=== PATIENT | male | born 1995 | race African-American/Black ===

== ENCOUNTER 2016-10-23 14:00 | Inpatient (IN) | payer MEDICARE, OTHER ==
--- NOTE | ~2016-10-23 | HP ---
Unit #: [id number] #: [id number] Patient: JIMBO HERMOSILLO [id number] [facility] [address] [place] [address] [id number] I MR#: [id number] NAME: JIMBO HERMOSILLO. ROOM: [facility] Age: 21 Sex: M Admission Date: 10/23/2016 : 1995 Attending Physician: Sajan Simms M.D. Admitting Physician: Sajan Simms M.D. Primary Care Physician: Generic Doctor Not In System HISTORY AND PHYSICAL HISTORY OF PRESENT ILLNESS The patient is a 21-year-old male, who has been admitted to [facility] for homicidal and suicidal ideations. He has had numerous admissions to this facility for the same. PAST MEDICAL HISTORY 1. Diabetes. 2. Drug abuse. 3. History of self-harming. PAST SURGICAL HISTORY Oral surgery. ALLERGIES No known allergies. HOME MEDICATIONS Fluphenazine 10 mg p.o. at night FAMILY HISTORY Medically noncontributory. SOCIAL HISTORY The patient denies alcohol and endorses tobaccoism, marijuana and opiate abuse. REVIEW OF SYSTEMS CONSTITUTIONAL: Denies fever or chills. HEENT: Denies any sore throat, ear pain or runny nose. CARDIOVASCULAR: Denies chest pain, irregular heart rhythm or palpitations. CHEST: Denies shortness of breath or cough. No hemoptysis. GASTROINTESTINAL: Denies nausea, vomiting, diarrhea or chronic constipation. ENDOCRINE: Denies history of increased thirst or urination. No recent significant weight loss or gain. GENITOURINARY: Denies dysuria, frequency, or hematuria. SKIN: Denies any rashes. HEMATOLOGIC: Denies history of increased bleeding or bruising. MUSCULOSKELETAL: Denies any hot, swollen joints. No generalized muscle pain. NEUROLOGIC: Denies problems with vision or speech. No frequent, severe headaches. No numbness, tingling or weakness in any extremities. Denies loss of bladder or bowel control. Unit #: [id number] #: [id number] Patient: JIMBO HERMOSILLO PHYSICAL EXAMINATION GENERAL: The patient is awake, alert, and in no acute distress. VITAL SIGNS: His vital signs are, temperature 98.7. respirations 20, heart rate 82, and blood pressure 119/54. WEIGHT: 166 pounds. HEIGHT: 6 feet 3 inches. SKIN: Warm and dry without rash or lesion. HEENT: Head: Atraumatic and normocephalic. Pupils equal, round, and reactive. Extraocular movements are intact. No drainage from nares or ears. NECK: Supple. Trachea is midline. No lymphadenopathy or thyromegaly is appreciated. HEART: Regular rate and rhythm. LUNGS: Clear. ABDOMEN: Soft, nontender. Nondistended. : Not done. SKIN: Appears to be warm, dry, and intact. EXTREMITIES: No evidence of clubbing, edema, or cyanosis. Moves all extremities well. NEUROLOGICAL: Cranial Nerves: II-XII intact. No focal deficits. Coordination: Gait is normal. Deep Tendon Reflexes: Intact. IMPRESSION Psychiatric admission. RECOMMENDATIONS Psychiatric, will be per psychiatry. MEDICAL I see no contraindications to participating in facility's activities. MEDICAL PROGNOSIS Fair. MEDICAL CONDITION Stable. Dictated by... Jayda Joel A.P.R.N. for Ruddy Salamanca TD: 10/24/2016 13:09 JOB #: [id number] Unit #: [id number] #: [id number] Patient: JIMBO HERMOSILLO HISTORY AND PHYSICAL Page 1 of 1 X Jayda Joel APRN X HISTORY AND PHYSICAL
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
== END 2016-10-27 10:51 | DRG 880 ==
LOC: P2S 16:47 → P1S 16:47 → P2S 17:24
DX: F68.11 Factitious disorder imposed on self, with predominantly psychological signs and symptoms (principal); F60.2 Antisocial personality disorder; J45.909 Unspecified asthma, uncomplicated; G47.00 Insomnia, unspecified
CPT/HCPCS: J0515

== ENCOUNTER 2016-10-29 10:11 | Inpatient (IN) | payer MEDICARE, OTHER ==
--- NOTE | ~2016-10-29 | PN ---
Unit #: [id number] #: [id number] Patient: JIMBO HERMOSILLO [id number] [facility] [address] [place] [address] [id number] I MR#: [id number] NAME: JIMBO HERMOSILLO ROOM: P131 Age: 21 Sex: M Admission Date: 10/29/2016 : 1995 Attending Physician: Sajan Simms M.D. Admitting Physician: Sajan Simms M.D. Primary Care Physician: Generic Doctor Not In System [facility] PROGRESS NOTES DATE 11/04/2016 DISCUSSION Jimbo continues unchanged today. He is becoming involved in some negative behaviors with peers, and appears to be quite provocative when he is not observed by staff. These are typical antisocial behaviors that he had demonstrated on multiple previous occasions. He is alert and fully oriented with no evidence of psychosis. He is equivocal about suicidal ideation today. ASSESSMENT 1. Intermittent explosive disorder. 2. Factitious disorder. PLAN Continue current treatment plan. Dictated by... Sajan Simms M.D. [facility]/antoine TD: 11/11/2016 21:26 JOB #: [id number] [facility] PROGRESS NOTES Page 1 of 1 X Sajan Simms MD PROGRESS NOTE
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
--- NOTE | ~2016-10-29 | PN ---
Unit #: [id number] #: [id number] Patient: JIMBO HERMOSILLO [id number] [facility] [address] [place] [address] [id number] MR#: [id number] NAME: JIMBO HERMOSILLO ROOM: P131 Age: 21 Sex: M Admission Date: 10/29/2016 : 1995 Attending Physician: Sajan Simms M.D. Admitting Physician: Sajan Simms M.D. Primary Care Physician: Generic Doctor Not In System [facility] PROGRESS NOTES DATE 11/03/2016 DISCUSSION Jimbo continues to be unchanged today. He occasionally has lability and some inappropriateness with staff but is "innocent" and pleasant upon approach with me. He appears to be trying to negotiate a discharge date that comports with his psychosocial circumstances, and I once again explained to him that we are not a housing agency and that his discharge will be completed when medically appropriate. He is alert and fully oriented with no evidence of psychosis. He is continuing to assert suicidal ideation. ASSESSMENT Intermittent explosive disorder. PLAN Continue current treatment plan. Dictated by... Sajan Simms M.D. /antoine TD: 11/11/2016 22:01 JOB #: [id number] [facility] PROGRESS NOTES Page 1 of 1 X Sajan Simms MD PROGRESS NOTE
--- NOTE | ~2016-10-29 | HP ---
Unit #: [id number] #: [id number] Patient: JIMBO HERMOSILLO [id number] [facility] [address] [place] [address] [id number] MR#: [id number] NAME: JIMBO HERMOSILLO. ROOM: P131 Age: 21 Sex: M Admission Date: 10/29/2016 : 1995 Attending Physician: Sajan Simms M.D. Admitting Physician: Sajan Simms M.D. Primary Care Physician: Generic Doctor Not In System HISTORY AND PHYSICAL HISTORY OF PRESENT ILLNESS Jimbo is a 21 year old admitted to [address] [place] [address] after an overdose of Depakote. He was transported to the emergency room, charcoaled, and when medically stable, transported to [facility] for psychiatric care. He has had numerous admissions to this facility. The patient was seen and H and P dated 10/24/2016 was reviewed. This is current. No changes. Please see H and P dated 10/24/2016. Dictated by... Karina Fulton PKashifABrionna. for Ruddy Salamanca/romulo TD: 10/31/2016 07:41 JOB #: [id number] HISTORY AND PHYSICAL Page 1 of 1 X Karina Fulton HISTORY AND PHYSICAL
--- NOTE | ~2016-10-29 | PN ---
Unit #: [id number] #: [id number] Patient: JIMBO HERMOSILLO [id number] [facility] [address] [place] [address] [id number] I MR#: [id number] NAME: JIMBO HERMOSILLO ROOM: P131 Age: 21 Sex: M Admission Date: 10/29/2016 : 1995 Attending Physician: Sajan Simms M.D. Admitting Physician: Sajan Simms M.D. Primary Care Physician: Generic Doctor Not In System [facility] PROGRESS NOTES DATE 11/02/2016 DISCUSSION Jimbo continues to be generally compliant with treatment planning and shows no changes in his mood today. He is alert and fully oriented with no evidence of psychosis. He continues to report suicidal ideation. ASSESSMENT Intermittent explosive disorder. PLAN Continue current treatment plan. Dictated by... Ruddy Rosas/antoine TD: 11/11/2016 22:19 JOB #: [id number] [facility] PROGRESS NOTES Page 1 of 1 X Sajan Simms MD X PROGRESS NOTE
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
[2016-10-30 09:55] LABS: BASOPHIL% 0.3 % (0-2.5); EOSINOPHIL# 0.2 X10e3 (0-0.7); EOSINOPHIL% 3.3 % (0.0-7.0); HEMATOCRIT 38.4 % (38.0-50.0); HEMOGLOBIN 12.4 gm/dL (13.0-16.0); LYMPHOCYTE# 1.8 X10e3 (1.0-3.5); LYMPHOCYTE% 30.5 % (17.0-45.0); MEAN CELL VOLUME 84.3 FL (83-96); MEAN CORPUSCULAR HEMOGLOBIN 27.2 PG (28-34); MEAN CORPUSCULAR HGB CONC 32.3 g/dL (30-36); MEAN PLATELET VOLUME 8.6 FL (6.5-11.5); MONOCYTE# 0.6 X10e3 (0-1.0); MONOCYTE% 9.8 % (3.0-12.0); NEUTROPHIL# 3.3 X10e3 (1.5-7.1); NEUTROPHIL% 56.1 % (40-75); PLATELET COUNT 223 X10e3 (140-420); RED BLOOD COUNT 4.56 X10e (3.90-5.60); RED CELL DISTRIBUTION WIDTH 13.8 % (11.0-15.5); WHITE BLOOD COUNT 5.9 X10e3 (4.0-10.5)
[2016-10-30 10:08] LABS: DIFF IND NO
[2016-10-30 10:11] LABS: THYROID STIMULATING HORMONE 1.06 uIU/ml (0.34-5.60)
[2016-10-30 10:18] LABS: FREE THYROXIN (T4) 0.79 ng/dL (0.58-1.64)
[2016-10-30 10:24] LABS: ALBUMIN SERUM 3.9 g/dL (3.5-5.0); BILIRUBIN,TOTAL 0.8 mg/dL (0.2-2.0); CALCIUM SERUM 9.7 mg/dL (8.4-10.2); POTASSIUM 4.5 mmol/L (3.5-5.1); PROTEIN TOTAL SERUM 6.6 g/dL (6.0-8.3)
== END 2016-11-05 12:00 | disposition home or self-care (01) | DRG 883 ==
LOC: P1S 17:23
PROVIDERS: Psychiatry & Neurology Psychiatry
DX: F63.81 Intermittent explosive disorder (principal); F68.11 Factitious disorder imposed on self, with predominantly psychological signs and symptoms; F60.2 Antisocial personality disorder; J45.909 Unspecified asthma, uncomplicated
CPT/HCPCS: 80053; 80164; 82140; 84439; 84443; 85025

== ENCOUNTER 2016-12-03 18:21 | Inpatient (IN) | payer MEDICARE, OTHER ==
--- NOTE | ~2016-12-03 | HP ---
Unit #: [id number] #: [id number] Patient: JIMBO HERMOSILLO [id number] [facility] [address] [place] [address] [id number] I MR#: [id number] NAME: JIMBO HERMOSILLO ROOM: [facility] Age: 21 Sex: M Admission Date: 12/03/2016 : 1995 Attending Physician: Sajan Simms M.D. Admitting Physician: Sajan Simms M.D. Primary Care Physician: Generic Doctor Not In System HISTORY AND PHYSICAL Jimbo is a 21 year old who was admitted and discharged within the first 24 hours. He was not seen for an H and P. Dictated by... Karina Fulton P.A.-C. for Ruddy Salamanca/antoine TD: 12/04/2016 16:21 JOB #: [id number] HISTORY AND PHYSICAL Page 1 of 1 X Karina Fulton X HISTORY AND PHYSICAL
== END 2016-12-04 11:24 | disposition home or self-care (01) | DRG 882 ==
LOC: P1S 18:21 → EDBD 12-04 11:24 → P1S 12-04 11:24
DX: F43.20 Adjustment disorder, unspecified (principal); F60.2 Antisocial personality disorder

== ENCOUNTER 2016-12-07 15:00 | Inpatient (IN) | payer MEDICARE, OTHER ==
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
--- NOTE | ~2016-12-07 | HP ---
Unit #: [id number] #: [id number] Patient: JIMBO HERMOSILLO [id number] [place] [address] [id number] MR#: [id number] NAME: JIMBO HERMOSILLO. ROOM: [facility] Age: 21 Sex: M Admission Date: 12/07/2016 : 1995 Attending Physician: Sajna Simms M.D. Admitting Physician: Sajan Simms M.D. Primary Care Physician: Generic Doctor Not In System HISTORY AND PHYSICAL HISTORY OF PRESENT ILLNESS Jimbo is a 21 year old admitted to [address] [place] [address] with depression and verbalizing wanting to hurt himself. He is well known to staff at [facility] because of his numerous admissions. PAST MEDICAL HISTORY 1. Diabetes mellitus 2. History of illicit drug use 3. History of self-harming PAST SURGICAL HISTORY Oral ALLERGIES No known drug allergies. SOCIAL HISTORY HISTORY OF PRESENT ILLNESS is a 43 year old admitted to [facility] with depression PAST MEDICAL HISTORY PAST SURGICAL HISTORY ALLERGIES No known drug allergies. SOCIAL HISTORY She denies cigarettes, alcohol and illicit drug use. FAMILY HISTORY Medically noncontributory. REVIEW OF SYSTEMS CONSTITUTIONAL: No fever or chills. HEENT: Denies any sore throat, ear pain or runny nose. CARDIOVASCULAR: Denies chest pain, irregular heart rhythm or palpitations. CHEST: Denies shortness of breath or cough. No hemoptysis. GASTROINTESTINAL: Denies nausea, vomiting, diarrhea or chronic constipation. ENDOCRINE: Denies history of increased thirst or urination. No recent Unit #: [id number] #: [id number] Patient: JIMBO HERMOSILLO significant weight loss or gain. GENITOURINARY: Denies dysuria, frequency, or hematuria. SKIN: Denies any rashes. HEMATOLOGIC: Denies history of increased bleeding or bruising. MUSCULOSKELETAL: Denies any hot, swollen joints. No generalized muscle pain. NEUROLOGIC: Denies problems with vision or speech. No frequent, severe headaches. No numbness, tingling or weakness in any extremities. Denies loss of bladder or bowel control. CURRENT MEDICATIONS PHYSICAL EXAMINATION GENERAL: Alert, well-nourished, in no apparent distress. VITAL SIGNS: Blood pressure 124/72, heart rate 60, respirations 16, temperature 98.6. WEIGHT: 182 pounds. HEIGHT: 5'6". SKIN: Warm and dry without rash or lesion. HEENT: Normocephalic. TMs not viewed. Oral and nasal passages clear. Conjunctivae clear. Pupils equal, round and reactive to light and accommodation. Extraocular movements intact. NECK: Supple without lymphadenopathy or thyromegaly. HEART: Regular rate and rhythm without murmur. LUNGS: Clear. ABDOMEN: Soft, nontender. : Not done. EXTREMITIES: No evidence of cyanosis, clubbing or edema. Moves all extremities without focal deficit. NEUROLOGICAL: Grossly within normal limits. Cranial Nerves: II: Visual coleman are intact. III, IV AND : Extraocular movements are intact. Pupils are equal, round and reactive to light. V: Facial sensation is grossly normal. VII: Facial movements and expression are normal. VIII: Auditory acuity grossly intact. IX, X: Uvula is midline. Phonation is normal. XI: Patient shrugs shoulders and turns head normally. XII: Tongue protrudes in the midline. Sensory and Motor Function: Sensory and motor sensation is grossly normal. Motor: moves all extremities well. Coordination: Gait is normal. Deep Tendon Reflexes: Intact. IMPRESSION Psychiatric admission RECOMMENDATIONS PSYCHIATRIC: Per psychiatrist. MEDICAL: I see no contraindications to participating in facility's activities. MEDICAL PROGNOSIS Good. MEDICAL CONDITION Stable. Smokes on occasion. Denies alcohol. Admits to illicit drug use. FAMILY HISTORY Unit #: [id number] #: [id number] Patient: JIMBO HERMOSILLO Medically noncontributory. REVIEW OF SYSTEMS He refuses to answer questions. There are no reports of nausea, vomiting or diarrhea. He has had no cough or increased temperature. CURRENT MEDICATIONS No orders received at the time of this dictation. PHYSICAL EXAMINATION GENERAL: Alert, well-nourished, in no apparent distress. VITAL SIGNS: Blood pressure 100/58, heart rate 80, respirations 16, temperature 98.6. WEIGHT: 180 pounds. HEIGHT: 6'3". SKIN: Warm and dry without rash or lesion. HEENT: Normocephalic. TMs not viewed. Oral and nasal passages clear. Conjunctivae clear. Pupils equal, round and reactive to light and accommodation. Extraocular movements intact. NECK: Supple without lymphadenopathy or thyromegaly. HEART: Regular rate and rhythm without murmur. LUNGS: Clear. ABDOMEN: Soft, nontender. : Not done. EXTREMITIES: No evidence of cyanosis, clubbing or edema. Moves all extremities without focal deficit. NEUROLOGICAL: Grossly within normal limits. Cranial Nerves: II: Visual coleman are intact. III, IV AND : Extraocular movements are intact. Pupils are equal, round and reactive to light. V: Facial sensation is grossly normal. VII: Facial movements and expression are normal. VIII: Auditory acuity grossly intact. IX, X: Uvula is midline. Phonation is normal. XI: Patient shrugs shoulders and turns head normally. XII: Tongue protrudes in the midline. Sensory and Motor Function: Sensory and motor sensation is grossly normal. Motor: moves all extremities well. Coordination: Gait is normal. Deep Tendon Reflexes: Intact. IMPRESSION Psychiatric admission. RECOMMENDATIONS PSYCHIATRIC: Per psychiatrist. MEDICAL: I see no contraindications to participating in facility's activities. MEDICAL PROGNOSIS Good. MEDICAL CONDITION Stable. Dictated by... Unit #: [id number] #: [id number] Patient: HERMOSILLOJIMBO, P.AKashif-Cathie. for Ruddy Salamanca/eleazar TD: 12/09/2016 00:51 JOB #: [id number] HISTORY AND PHYSICAL Page 1 of 1 X Karina Fulton X HISTORY AND PHYSICAL
[2016-12-08 12:24] LABS: BASOPHIL% 0.6 % (0-2.5); EOSINOPHIL# 0.1 X10e3 (0-0.7); HEMATOCRIT 41.4 % (38.0-50.0); HEMOGLOBIN 13.3 gm/dL (13.0-16.0); LYMPHOCYTE# 2.2 X10e3 (1.0-3.5); LYMPHOCYTE% 40.6 % (17.0-45.0); MEAN CELL VOLUME 85.1 FL (83-96); MEAN CORPUSCULAR HEMOGLOBIN 27.4 PG (28-34); MEAN CORPUSCULAR HGB CONC 32.2 g/dL (30-36); MEAN PLATELET VOLUME 8.8 FL (6.5-11.5); MONOCYTE# 0.3 X10e3 (0-1.0); MONOCYTE% 6.2 % (3.0-12.0); NEUTROPHIL# 2.8 X10e3 (1.5-7.1); NEUTROPHIL% 50.6 % (40-75); PLATELET COUNT 232 X10e3 (140-420); RED BLOOD COUNT 4.86 X10e (3.90-5.60); RED CELL DISTRIBUTION WIDTH 14.4 % (11.0-15.5); WHITE BLOOD COUNT 5.5 X10e3 (4.0-10.5)
[2016-12-08 12:25] LABS: DIFF IND NO
[2016-12-08 12:35] LABS: ALBUMIN SERUM 4.5 g/dL (3.5-5.0); BILIRUBIN,TOTAL 0.8 mg/dL (0.2-2.0); BUN/CREATININE RATIO 21.25; CALCIUM SERUM 9.9 mg/dL (8.4-10.2); CREATININE SERUM 0.8 mg/dL (0.6-1.4); GLOM FILT RATE Estimated 128.6 mL/min (>60); POTASSIUM 4.4 mmol/L (3.5-5.1); PROTEIN TOTAL SERUM 7.6 g/dL (6.0-8.3)
== END 2016-12-08 13:59 | disposition left against medical advice (07) | DRG 880 ==
LOC: POF 16:36 → P1S 17:20 → EDBD 12-08 13:59
PROVIDERS: Psychiatry & Neurology Psychiatry
DX: F68.11 Factitious disorder imposed on self, with predominantly psychological signs and symptoms (principal); F60.2 Antisocial personality disorder; F12.10 Cannabis abuse, uncomplicated
CPT/HCPCS: 80053; 85025

== ENCOUNTER 2016-12-09 09:28 | Inpatient (IN) | payer MEDICARE, OTHER ==
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
[2016-12-12 10:09] LABS: AMPHETAMINE NEG (NEG); BARBITURATES NEG (NEG); BENZODIAZEPINES NEG (NEG); COCAINE NEG (NEG); MARIJUANA NEG (NEG); OPIATES NEG (NEG); TRICYCLIC ANTIDEPRESSANTS NEG (NEG); U METHADONE NEG (NEG)
== END 2016-12-13 15:20 | disposition home or self-care (01) | DRG 880 ==
LOC: P2S 11:13 → EDBD 12-13 15:20
PROVIDERS: Psychiatry & Neurology Psychiatry
DX: F68.11 Factitious disorder imposed on self, with predominantly psychological signs and symptoms (principal); F60.2 Antisocial personality disorder; F19.10 Other psychoactive substance abuse, uncomplicated; Z59.0 Homelessness
CPT/HCPCS: 80307

== ENCOUNTER 2017-01-02 12:00 | Inpatient (IN) | payer MEDICARE, OTHER ==
--- NOTE | ~2017-01-02 | HP ---
Unit #: [id number] #: [id number] Patient: JIMBO HERMOSILLO [id number] [facility] [address] [place] [address] [id number] MR#: [id number] NAME: JIMBO HERMOSILLO. ROOM: 15 Age: 21 Sex: M Admission Date: 01/02/2017 : 1995 Attending Physician: Sajan Simms M.D. Admitting Physician: Sajan Simms M.D. Primary Care Physician: No Primary Care Physician HISTORY AND PHYSICAL REASON FOR ADMISSION Acute psychiatric inpatient admission. HISTORY OF PRESENT ILLNESS The patient has positive homicidal ideation and/or mental illness. Subsequently the patient presented for further evaluation. Increased anxiety. Prior history of suicidal ideation was noted. PAST MEDICAL HISTORY 1. Tobacco, substance abuse. 2. Underlying mental illness. HOME MEDICATIONS 1. Adderall. 2. Depakote. REVIEW OF SYSTEMS See history of present illness. Twelve points otherwise negative except for those positive noted in history of present illness. PHYSICAL EXAMINATION VITALS: Temperature 98.4, pulse 64, respiratory rate 18, blood pressure 103/61. GENERAL: Awake, alert, oriented to person, place, and time. Well built, well nourished. Does not appear to be in any acute distress. HEAD: Atraumatic. Normocephalic. EYES: Bilateral extraocular muscles are normal. Pupils equal, reactive to light and accommodation. Sclerae are normal. No jaundice. NECK: Neck is supple. No neck rigidity. No thyromegaly. No carotid bruit. No JVD. Oral mucosa is moist. CHEST: Bilateral vesicular breathing. Clear to auscultation. No basilar rales. CARDIOVASCULAR: S1 and S2 normal. No murmur, no gallop, no rub. ABDOMEN: Soft, nontender. No organomegaly. Bowel sounds are normal. No hernia, no masses, no rebound, no guarding. EXTREMITIES: No pitting edema. No calf tenderness. Extremity pulses, including dorsalis pedis, have good volume. BACK: Normal spine curvature. No spine tenderness. No costovertebral angle tenderness. WINDOWS ARCHITECT: Cranial nerves normal bilaterally. Motor function bilaterally symmetric and normal. Sensory system normal. SKIN: Warm and dry. ASSESSMENT Unit #: [id number] #: [id number] Patient: JIMBO HERMOSILLO 1. Acute psychiatric inpatient admission. 2. Suicidal/homicidal ideation. PLAN As per psychiatrist. Medical condition stable. Medical disposition, there are no medical contraindications to the patient participating in active care while here at [facility]. Dictated by... Todd Gtz M.D. ROB/gz TD: 01/03/2017 09:16 JOB #: [id number] HISTORY AND PHYSICAL Page 1 of 1 X Todd Gtz MD X HISTORY AND PHYSICAL
--- NOTE | ~2017-01-02 | PN ---
Unit #: [id number] #: [id number] Patient: JIMBO HERMOSILLO [id number] [facility] [address] [place] [address] [id number] MR#: [id number] NAME: JIMBO HERMOSILLO ROOM: P115 Age: 21 Sex: M Admission Date: 01/02/2017 : 1995 Attending Physician: Sajan Simms M.D. Admitting Physician: Sajan Simms M.D. Primary Care Physician: Primary Care Physician Vika SHAW PROGRESS NOTES DATE OF SERVICE 01/05/2017 DISCUSSION Jimbo is sleeping heavily this morning and is difficult to wait for an interview. His mood was irritable with a congruent affect. He was alert and fully oriented with no evidence of psychosis. He continues to report suicidal thinking. ASSESSMENT Factitious order with psychologic symptoms. PLAN Continue current treatment plan. Dictated by... Sajan Simms M.D. [facility]/bzg TD: 01/06/2017 10:04 JOB #: [id number] [facility] PROGRESS NOTES Page 1 of 1 X Sajan Simms MD PROGRESS NOTE
--- NOTE | ~2017-01-02 | PN ---
Unit #: [id number] #: [id number] Patient: JIMBO HERMOSILLO [id number] [facility] [address] [place] [address] [id number] MR#: [id number] NAME: JIMBO HERMOSILLO. ROOM: P115 Age: 21 Sex: M Admission Date: 01/02/2017 : 1995 Attending Physician: Sajan Simms M.D. Admitting Physician: Sajan Simsm M.D. Primary Care Physician: Primary Care Physician Vika SHAW PROGRESS NOTES DATE 01/06/2017 DISCUSSION Jimbo continues to be irritable in his mood and claims that his brother "has it out for me" although he feels he can go home tomorrow. He originally asked for discharge against medical advice this morning but that appeared to have been based on an arrangement with a peer which fell through. He is alert and fully oriented with absolutely no evidence of psychosis. ASSESSMENT Factitious disorder with psychological symptoms. PLAN We will continue Remeron for sleep and anticipate discharge soon. Dictated by... Ruddy Rosas/eleazar TD: 01/07/2017 01:01 JOB #: [id number] [facility] PROGRESS NOTES Page 1 of 1 X Sajan iSmms MD PROGRESS NOTE
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
--- NOTE | ~2017-01-02 | PN ---
Unit #: [id number] #: [id number] Patient: JIMBO HERMOSILLO [id number] [facility] [address] [place] [address] [id number] I MR#: [id number] NAME: JIMBO HERMOSILLO. ROOM: P115 Age: 21 Sex: M Admission Date: 01/02/2017 : 1995 Attending Physician: Sajan Simms M.D. Admitting Physician: Sajan Simms M.D. Primary Care Physician: Primary Care Physician Vika SHAW PROGRESS NOTES DATE 01/04/2017 DISCUSSION This morning Jimbo states that he is supposed to be on "Adderall and Xanax" but I informed him these substances would not be forthcoming in the hospital. He then requested Remeron, which I presume is for sleep as he has no depressive or anxiety symptoms except as those related to his chronically chaotic outpatient situation. He has been making sexual remarks toward female staff and is showing his usual tendency to be "sneaky" and attempting to get away with interactions with patient's unobserved by staff. ASSESSMENT Factitious disorder with psychological symptoms. PLAN Add Remeron 30 mg at bedtime to assist with sleep and monitor for response. Dictated by... Ruddy Rosas/eleazar TD: 01/05/2017 23:10 JOB #: [id number] [facility] NOTES Page 1 of 1 X Sajan Simms MD X PROGRESS NOTE
== END 2017-01-07 11:00 | disposition home or self-care (01) | DRG 880 ==
LOC: P1S 15:45 → EDBD 01-07 11:00
DX: F68.11 Factitious disorder imposed on self, with predominantly psychological signs and symptoms (principal); R45.851 Suicidal ideations; R45.850 Homicidal ideations; F12.10 Cannabis abuse, uncomplicated

== ENCOUNTER 2017-01-07 15:00 | Inpatient (IN) | payer MEDICARE, OTHER ==
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
--- NOTE | ~2017-01-07 | HP ---
Unit #: [id number] #: [id number] Patient: JIMBO HERMOSILLO [id number] [facility] [address] [place] [address] [id number] I MR#: [id number] NAME: JIMBO HERMOSILLO ROOM: P130 Age: 21 Sex: M Admission Date: 01/07/2017 : 1995 Attending Physician: Sajan Simms M.D. Admitting Physician: Sajan Simms M.D. Primary Care Physician: Primary Care Physician No HISTORY AND PHYSICAL Jimbo is a 21 year old admitted to [address] [place] [address] because of his continued reports of being depressed and allegedly contemplating hurting himself. He was just discharged from this facility and in less than 4 hours, he was readmitted. Patient was seen and h and P dated 01/03/17 was reviewed. This is current. No changes. Please see H and P dated 01/03/17. Dictated by... Karina Fulton P.A.-C. for Ruddy Salamanca/antoine TD: 01/08/2017 15:43 JOB #: [id number] HISTORY AND PHYSICAL Page 1 of X Karina Fulton HISTORY AND PHYSICAL
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
== END 2017-01-09 10:57 | disposition home or self-care (01) | DRG 880 ==
LOC: P1S 20:45 → EDBD 01-09 10:57 → P1S 01-09 10:57
DX: F68.11 Factitious disorder imposed on self, with predominantly psychological signs and symptoms (principal); F60.2 Antisocial personality disorder
CPT/HCPCS: 99285; J3486

== ENCOUNTER 2017-01-14 02:04 | Emergency (ER) | payer MEDICARE, OTHER ==
[~2017-01-14] VITALS: Ht 193 cm; Wt 81.6 kg
--- NOTE | ~2017-01-14 | EKG ---
PATIENT: JIMBO HERMOSILLO UNIT #: [id number] Ventricular Rate: 85 BPM Atrial Rate: 85 BPM P-R Interval: 192 ms QRS Duration: 78 ms Q-T Interval: 342 ms QTC Calculation(Bezet): 406 ms P [place]: 63 degrees Calculated R [place]: 75 degrees Calculated T [place]: 45 degrees Diagnosis Line: Normal sinus rhythm Diagnosis Line: Minimal voltage criteria for LVH, may be normal Diagnosis Line: variant Diagnosis Line: Borderline ECG Diagnosis Line: When compared with ECG of 02-OCT-2011 13:57, Diagnosis Line: No significant change was found Diagnosis Line: Confirmed by ISIDRA REID MD ([id number]) on 01/14/2017 Diagnosis Line: 11:06:25 PM INTERPRETING MD: FRANKLIN MERCADO
[2017-01-14 03:35] LABS: BASOPHIL% 0.2 % (0-2.5); EOSINOPHIL# 0.1 X10e3 (0-0.7); EOSINOPHIL% 1.3 % (0.0-7.0); HEMATOCRIT 39.3 % (38.0-50.0); HEMOGLOBIN 12.7 gm/dL (13.0-16.0); LYMPHOCYTE# 2.2 X10e3 (1.0-3.5); LYMPHOCYTE% 26.9 % (17.0-45.0); MEAN CELL VOLUME 84.9 FL (83-96); MEAN CORPUSCULAR HEMOGLOBIN 27.5 PG (28-34); MEAN CORPUSCULAR HGB CONC 32.3 g/dL (30-36); MEAN PLATELET VOLUME 8.6 FL (6.5-11.5); MONOCYTE# 0.7 X10e3 (0-1.0); MONOCYTE% 7.8 % (3.0-12.0); NEUTROPHIL# 5.3 X10e3 (1.5-7.1); NEUTROPHIL% 63.8 % (40-75); PLATELET COUNT 262 X10e3 (140-420); RED BLOOD COUNT 4.63 X10e (3.90-5.60); RED CELL DISTRIBUTION WIDTH 14.1 % (11.0-15.5); WHITE BLOOD COUNT 8.4 X10e3 (4.0-10.5)
[2017-01-14 03:38] LABS: DIFF IND NO
[2017-01-14 04:07] LABS: ALBUMIN SERUM 4.5 g/dL (3.5-5.0); BILIRUBIN, DIRECT 0.1 mg/dL (0.0-0.2); BILIRUBIN,INDIRECT 0.8 mg/dL (0.0-0.9); BILIRUBIN,TOTAL 0.9 mg/dL (0.2-2.0); CALCIUM SERUM 9.7 mg/dL (8.4-10.2); CREATININE SERUM 0.8 mg/dL (0.6-1.4); GLOM FILT RATE Estimated 149.1 mL/min (>60); POTASSIUM 3.2 mmol/L (3.5-5.1); PROTEIN TOTAL SERUM 7.6 g/dL (6.0-8.3)
== END 2017-01-14 03:54 | disposition home or self-care (01) ==
LOC: CED 02:04 → EDBD 02:56 → CED 03:54
PROVIDERS: Emergency Medicine
DX: M79.1 Myalgia (principal); F31.9 Bipolar disorder, unspecified; F90.9 Attention-deficit hyperactivity disorder, unspecified type; F20.9 Schizophrenia, unspecified; F17.210 Nicotine dependence, cigarettes, uncomplicated; Z88.0 Allergy status to penicillin; Z88.8 Allergy status to other drugs, medicaments and biological substances
CPT/HCPCS: 36415; 80048; 80076; 82550; 85025; 93005; 96361; 96374; 99284; J2405

== ENCOUNTER 2017-01-15 | Inpatient (IN) | payer MEDICARE, OTHER ==
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
--- NOTE | ~2017-01-15 | PN ---
Unit #: [id number] #: [id number] Patient: JIMBO HERMOSILLO [id number] [facility] [address] [place] [address] [id number] I MR#: [id number] NAME: JIMBO HERMOSILLO ROOM: P116 Age: 21 Sex: M Admission Date: 01/15/2017 : 1995 Attending Physician: Sajan Simms M.D. Admitting Physician: Sajan Simms M.D. Primary Care Physician: Primary Care Physician Vika SHAW PROGRESS NOTES DATE OF SERVICE: 01/17/2017 DISCUSSION Jimbo is laying in his room this morning avoiding contact with peers and staff. He is irritable in mood with a congruent affect. He is alert and fully oriented with no evidence of psychosis, and is unable to contract for safety. ASSESSMENT Factitious disorder. PLAN Continue hospitalization. Dictated by... Ruddy RosasH/hany TD: 01/21/2017 11:04 JOB #: [id number] [facility] PROGRESS NOTES Page 1 of 1 X Sajan Simms MD PROGRESS NOTE
--- NOTE | ~2017-01-15 | PA ---
Unit #: [id number] #: [id number] Patient: JIMBO HERMOSILLO [id number] [facility] [address] [place] [address] [id number] I MR#: [id number] NAME: JIMBO HERMOSILLO. ROOM: [facility] Age: 21 Sex: M Admission Date: 01/15/2017 : 1995 Date of Assessment: 01/15/2017 Attending Physician: Sajan Simms M.D. Admitting Physician: Sajan Simms M.D. Primary Care Physician: Primary Care Physician No PSYCHIATRIC ASSESSMENT DATE OF SERVICE 01/15/2017. INFORMANTS The patient, unreliable; [facility], reliable. CHIEF COMPLAINT Suicidal ideation. HISTORY OF PRESENT ILLNESS Jimbo Hermosillo is a 21-year-old man with multiple admissions to this facility for antisocial behavior and some mild drug related issues. He reported suicidal ideation and could not contract for safety today. He was readmitted for stabilization. PAST PSYCHIATRIC HISTORY Multiple admissions. Please see previous assessments for details. FAMILY PSYCHIATRIC HISTORY None reported. SOCIAL HISTORY The patient is homeless in the community and has family in the area, although they generally refused to provide him with [facility] at this point. PAST MEDICAL HISTORY The patient has claimed diabetes, asthma, and other conditions in the past that has been unconfirmed. MEDICATIONS Please see MAR. ALLERGIES No known medication allergies except for Haldol. SUBSTANCE USE HISTORY The patient claims to use "spice" on occasion. MENTAL STATUS EXAMINATION Jimbo presented as a disheveled man, appearing older than his stated age. He was irritable and uncooperative with the examination. His speech was spontaneous and easily understood. His musculoskeletal examination was calm. His mood was irritable with decreased range of affect. He was Unit #: [id number] #: [id number] Patient: JIMBO HERMOSILLO alert and fully oriented with no psychosis. He continues to report suicidal ideation. ASSETS AND LIABILITIES The patient is youthful and voluntary. Liabilities include chronic hospitalization, poor support, antisocial traits. ADMITTING DIAGNOSES AXIS I: Factitious disorder with psychological symptoms, F68.11, possible spice abuse. AXIS II: Antisocial personality disorder. AXIS III: None acute. AXIS IV: AXIS V: PSYCHIATRIC PLAN Jimbo was admitted and placed back on Remeron for sleep and trazodone p.r.n. for insomnia. He will enroll in psychotherapy groups and activities and physical examination and laboratory studies will be ordered and reviewed. TREATMENT GOALS Resolution of SI, improvement in insight, and improvement in coping skills. DISCHARGE PLANNING Follow up with [facility]. ESTIMATED LENGTH OF STAY 5 days. Dictated by... Sajan Simms M.D. CLAUDIA/hany TD: 01/19/2017 12:58 JOB #: [id number] PSYCHIATRIC ASSESSMENT Page 1 of 1 X Sajan Simms MD X PSYCHIATRIC ASSESSMENT
== END 2017-01-17 11:30 | disposition home or self-care (01) | DRG 880 ==
LOC: P1S 04:32 → EDBD 01-17 11:30
DX: F68.11 Factitious disorder imposed on self, with predominantly psychological signs and symptoms (principal); R45.851 Suicidal ideations; F19.10 Other psychoactive substance abuse, uncomplicated; F60.2 Antisocial personality disorder; Z59.0 Homelessness; S69.91XD Unspecified injury of right wrist, hand and finger(s), subsequent encounter; X58.XXXD Exposure to other specified factors, subsequent encounter
CPT/HCPCS: 36415; 73130; 80048; 85025; G0480

== ENCOUNTER 2017-01-18 18:00 | Inpatient (IN) | payer MEDICARE, OTHER ==
[~2017-01-18] VITALS: Ht 190.5 cm; Wt 83.9 kg
--- NOTE | ~2017-01-18 | HP ---
Unit #: [id number] #: [id number] Patient: JIMBO HERMOSILLO [id number] [facility] [address] [place] [address] [id number] I MR#: [id number] NAME: JIMBO HERMOSILLO ROOM: P115 Age: 21 Sex: M Admission Date: 01/19/2017 : 1995 Attending Physician: Sajan Simms M.D. Admitting Physician: Sajan Simms M.D. Primary Care Physician: Primary Care Physician No HISTORY AND PHYSICAL HISTORY OF PRESENT ILLNESS Jimbo is a 21 year old admitted to [address] [place] [address] with depression and verbalizing wanting to hurt himself. He has had 21 admissions to this facility in the past 12 months. The patient was seen and H and P dated 01/15/2017 was reviewed. This is current. No changes. Please see H and P dated 01/15/2017. Dictated by... Karina Fulton P.A.-C. for Ruddy Salamanca/eleazar TD: 01/19/2017 22:20 JOB #: [id number] HISTORY AND PHYSICAL Page 1 of 1 X Karina Fulton HISTORY AND PHYSICAL
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
--- NOTE | ~2017-01-18 | PA ---
Unit #: [id number] #: [id number] Patient: JIMBO HERMOSILLO [id number] [facility] [address] [place] [address] [id number] MR#: [id number] NAME: JIMBO HERMOISLLO ROOM: [facility] Age: 21 Sex: M Admission Date: 01/19/2017 : 1995 Date of Assessment: Attending Physician: Sajan Simms M.D. Admitting Physician: Sajan Simms M.D. Primary Care Physician: No Primary Care Physician PSYCHIATRIC ASSESSMENT INFORMANT(S) Patient unreliable, [facility] reliable. CHIEF COMPLAINT Suicidal ideation. HISTORY OF PRESENT ILLNESS Jimbo is a 21-year-old male brought for admission to this facility for antisocial behavior. He was discharged from this facility against medical advice but immediately returned, stating he is now no longer getting along with his brother and reported that he became threatening again. He was unable to contract for safety and after a period of waiting for a bed to open up he was readmitted. PAST PSYCHIATRIC HISTORY Please see previous assessments for details. FAMILY PSYCHIATRIC HISTORY None supported. SOCIAL HISTORY The patient is estranged from his family and is generally homeless in the community with erratic support from his family. MEDICAL HISTORY No chronic medical problems. MEDICATION HISTORY 1. Trazodone. 2. Remeron. ALLERGIES Haldol. SUBSTANCE ABUSE HISTORY The patient claims he uses "spice" on occasion, but this has not been confirmed. MENTAL STATUS EXAM Jimbo is a mildly disheveled man appearing his stated age. He was irritable but cooperative with examination. Speech was sparse. Musculoskeletal examination calm. Mood was irritable with a flat affect. He was fully oriented with no psychosis and continued suicidal ideation. Unit #: [id number] #: [id number] Patient: JIMBO HERMOSILLO ASSETS AND LIABILITIES The patient is youthful and voluntary. Liabilities include current hospitalization and antisocial traits. ADMITTING DIAGNOSES AXIS I Factitious disorder with psychological symptoms, F68.11. AXIS II: Antisocial personality disorder. AXIS III: None acute. PSYCHIATRIC PLAN The patient was admitted and placed back on Remeron and trazodone for sleep. TREATMENT GOALS He will enroll in psychotherapy groups and activities and we will work with him on achieving improved placement in the community. ESTIMATED LENGTH OF STAY 5 days. Dictated by... Sajan Simms M.D. MRH/gz TD: 01/20/2017 12:07 JOB #: [id number] PSYCHIATRIC ASSESSMENT Page 1 of 1 X Sajan Simms MD PSYCHIATRIC ASSESSMENT
--- NOTE | ~2017-01-18 | PN ---
Unit #: [id number] #: [id number] Patient: JIMBO HERMOSILLO [id number] [facility] [address] [place] [address] [id number] MR#: [id number] NAME: JIMBO HERMOSILLO ROOM: P115 Age: 21 Sex: M Admission Date: 01/19/2017 : 1995 Attending Physician: Sajan Simms M.D. Admitting Physician: Sajan Simms M.D. Primary Care Physician: Primary Care Physician No MARILUCE PROGRESS NOTES DATE OF SERVICE: 01/21/2017 DISCUSSION Jimbo remains isolative in his room and irritable in mood today. He is alert and fully oriented. He continues to endorse SI, although he does not appear psychotic or otherwise ill. He declines to participate in unit groups and activities. ASSESSMENT Factitious disorder. PLAN Continue hospitalization. Dictated by... Ruddy Rosas/hany TD: 01/21/2017 12:00 JOB #: [id number] [facility] PROGRESS NOTES Page 1 of 1 X Sajan Simms MD X PROGRESS NOTE
== END 2017-01-23 10:17 | disposition home or self-care (01) | DRG 880 ==
LOC: P1S 01-19 07:26 → POF 01-19 07:26 → P1S 01-19 10:34 → EDBD 01-23 10:17 → P1S 01-23 10:17
DX: F68.11 Factitious disorder imposed on self, with predominantly psychological signs and symptoms (principal); R45.851 Suicidal ideations; F60.2 Antisocial personality disorder; Z88.8 Allergy status to other drugs, medicaments and biological substances; Z59.0 Homelessness

== ENCOUNTER 2017-01-24 07:00 | Inpatient (IN) | payer MEDICARE, OTHER ==
[~2017-01-24] VITALS: Ht 193 cm; Wt 81.6 kg
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
--- NOTE | ~2017-01-24 | PN ---
Unit #: [id number] #: [id number] Patient: JIMBO HERMOSILLO [id number] [facility] [address] [place] [address] [id number] MR#: [id number] NAME: JIMBO HERMOSILLO. ROOM: [facility] Age: 21 Sex: M Admission Date: 01/24/2017 : 1995 Attending Physician: Sajan Simms M.D. Admitting Physician: Sajan Simms M.D. Primary Care Physician: Primary Care Physician Vika SHAW PROGRESS NOTES DATE 01/22/2017 DISCUSSION Upon today's assessment this patient was found ambulating in the hallway and appearing in no apparent distress. He reports that he has just been feeling tired and sleepy since admission. He reports positive suicidal ideation at this time with a plan to overdose if released from the hospital and he currently denies suicidal or homicidal ideation at this time. Upon toady's assessment he reports that his parents are a good source of support for him and states that he has not seen them in some time and asked if he would be provided irregular visit. He reports an adequate appetite and the appropriate amount of sleep. PLAN Continue to monitor Mr. Garcia with suicidal precautions and q 15 minutes checks for safety. Dictated by... GEOVANI Tolbert TD: 01/26/2017 05:38 JOB #: [id number] [facility] PROGRESS NOTES Page 1 of 1 X JEFFERY SAWANT PROGRESS NOTE
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
== END 2017-01-27 15:04 | disposition home or self-care (01) | DRG 880 ==
LOC: POF 09:28 → P2S 09:28 → P1S 09:28 → P2S 09:56 → P1S 14:00 → EDBD 01-27 15:04
DX: F68.11 Factitious disorder imposed on self, with predominantly psychological signs and symptoms (principal); R45.851 Suicidal ideations; R45.850 Homicidal ideations; F60.2 Antisocial personality disorder
CPT/HCPCS: J2060; J3486

== ENCOUNTER 2017-01-30 17:22 | Inpatient (IN) | payer MEDICARE, OTHER ==
--- NOTE | ~2017-01-30 | PN ---
Unit #: [id number] #: [id number] Patient: JIMBO HERMOSILLO [id number] [facility] [address] [place] [address] [id number] I MR#: [id number] NAME: JIMBO HERMOSILLO ROOM: P116 Age: 21 Sex: M Admission Date: 01/30/2017 : 1995 Attending Physician: Dhruv Patel M.D. Admitting Physician: Dhruv Patel M.D. Primary Care Physician: Primary Care Physician Vika SHAW PROGRESS NOTES DATE 01/31/2017 DISCUSSION Jimbo is a 21-year-old male seen on 01/31/2017. Patient interviewed. Chart reviewed. Obtained information from nursing staff. Patient's mood sad, dysphoric, flat affect, withdrawn, isolative, guarded. Patient admitted making statements about harming self and others, duty to warn done. Complete review of system unremarkable. MENTAL STATUS EXAMINATION General appearance, patient dressed casually, tall, well-built. Attention span, concentration poor. Oriented in place and person. Mood and affect labile. Speech monotone. Thought process concrete. Patient reported having thoughts of harming self or others, withdrawn, isolative. Recent and remote memory poor. Insight and judgement poor. DIAGNOSES 1. Bipolar mood disorder NOS. 2. Amphetamine abuse disorder, moderate. 3. Cannabis abuse disorder, moderate. ASSESSMENT/PLAN Advised to continue with current medication and therapeutic protocol. If needed, consider further adjustment of medication such as adding a mood stabilizer. Dictated by... Ruddy Duong/antoine TD: 01/31/2017 18:02 JOB #: [id number] Unit #: [id number] #: [id number] Patient: JIMBO HERMOSILLO [facility] PROGRESS NOT[facility] Page 1 of 1 X Dhruv Patel MD X PROGRESS NOTE
--- NOTE | ~2017-01-30 | PA ---
Unit #: [id number] #: [id number] Patient: JIMBO HERM[facility]ILLO [id number] [facility] [address] [place] [address] [id number] I MR#: [id number] NAME: JIMBO HERMOSILLO ROOM: P116 Age: 21 Sex: M Admission Date: 01/30/2017 : 1995 Date of Assessment: 01/31/2017 Attending Physician: Dhruv Patel M.D. Admitting Physician: Dhruv Patel M.D. Primary Care Physician: Primary Care Physician No PSYCHIATRIC ASSESSMENT INFORMANT The patient reliability, fair. Chart reliability, good. CHIEF COMPLAINT Homicidal ideation. HISTORY OF PRESENT ILLNESS Mr. Garcia is a 21-year-old male, well known to us from his previous hospitalization, presented with suicidal ideation with a plan to overdose on his medication. The patient reported that he is feeling suicidal because he is fighting with his older brother that he lives with. The patient also reported having homicidal ideation towards his younger brother. The patient reports that he is self medicating, his depression and anger with meth. The patient also using blunt. The patient needing inpatient admission at this time for psychiatric stabilization. PAST PSYCHIATRIC HISTORY Remarkable for history of multiple previous admission at [facility]. FAMILY HISTORY AND SOCIAL HISTORY The patient lives with his brother. No history of abuse. Denied any legal problems. Family history is remarkable for history of bipolar disorder in mother and father. MEDICAL HISTORY Remarkable for asthma, Klinefelter syndrome. Musculoskeletal; muscle strength and tone, no atrophy or abnormal movement. Gait normal. MEDICATION HISTORY The patient is on trazodone and Remeron combination. ALLERGIES No known drug allergies. SUBSTANCE ABUSE HISTORY The patient reported marijuana abuse, age of onset 20; opioid, age of onset 20; amphetamine, age of onset 20. REVIEW OF SYSTEMS HEENT: Eyes, clear. Ears, nose, mouth, and throat; clear. CARDIOVASCULAR: Unremarkable. RESPIRATORY: Unremarkable. GI: Unremarkable. Unit #: [id number] #: [id number] Patient: JIMBO HERMOSILLO : Unremarkable. SKIN: Unremarkable. LYMPH NODE: Unremarkable. NEUROLOGIC: Unremarkable. ENDOCRINE: Unremarkable. HEMATOLOGIC: Unremarkable. ALLERGIC/IMMUNOLOGIC: Unremarkable. MUSCULOSKELETAL: Muscle strength and tone, no atrophy or abnormal movement. Gait normal. MENTAL STATUS EXAMINATION CONSTITUTIONAL: Measurement of vital signs; temperature 98.6, pulse 68, respirations 16, oxygen saturation 100%, and blood pressure 118/72. Complete review of systems unremarkable. General appearance; the patient dressed casually, tall, well built, no facial deformity noted. Musculoskeletal; please see above. PSYCHIATRIC EXAMINATION Description of speech; regular rate and rhythm, spontaneous. Description of thought process, circumstantial. Description of association, intact. Description of abnormal psychotic thinking; the patient denied any hallucination, but mood lability, problem with anger, temper, substance abuse. Description of the patient's judgment, concerning everyday activity, poor. Social situation, poor. Concerning psychiatric condition, poor. Complete mental status examination; oriented in time, place, and person. Recent and remote memory, fair. Attention span and concentration, fair. Language; able to name object and repeat phrases. Fund of knowledge, aware of current event and past history. Vocabulary intact. Mood and affect, sad and dysphoric. Insight and judgment, fair to poor. ASSETS AND LIABILITIES Assets; the patient is articulate; able to take care of his ADL. Liability, history of substance abuse, depression. ADMITTING DIAGNOSES Psychiatric: Bipolar mood disorder, recurrent, severe, depressed F31.9; history of cannabis abuse; amphetamine abuse, moderate. Secondary diagnosis: Deferred. Medical diagnosis: Asthma, history of Klinefelter syndrome. Stressors: Psychosocial stressor. PSYCHIATRIC PLAN AND TREATMENT GOAL AND DISCHARGE PLAN 1. Advised to admit the patient on the inpatient unit. Provide safe, supportive, and structured environment. 2. Ordered labs; CBC, CMP, UA, and UDS. 3. Precaution for aggression and self-harm. 4. The patient to resume home medication. If needed, consider further adjustment of medication such as considering mood stabilizer. Treatment goal to attain euthymic mood, gain insight into his problem, and learn coping skills. 5. Discharge plan, plan to stabilize the patient and consider followup in outpatient program. Unit #: [id number] #: [id number] Patient: JIMBO HERMOSILLO ESTIMATED LENGTH OF STAY 2 weeks. Dictated by... Dhruv Patel M.D. JENNY/hany TD: 01/31/2017 14:59 JOB #: [id number] PSYCHIATRIC ASSESSMENT Page 1 of 1 X Dhruv Patel MD PSYCHIATRIC ASSESSMENT
--- NOTE | ~2017-01-30 | DS ---
Unit #: [id number] #: [id number] Patient: JIMBO HERMOSILLO [id number] [facility] [address] [place] [address] [id number] MR#: [id number] NAME: JIMBO HERMOSILLO ROOM: P202 Age: 21 Sex: M Admission Date: 01/30/2017 : 1995 Discharge Date: 02/05/2017 Attending Physician: Dhruv Patel M.D. Primary Care Physician: Primary Care Physician No DISCHARGE SUMMARY REASON FOR ADMISSION Depression, aggression. DIAGNOSTIC STUDIES LABORATORY DATA: Unremarkable. HOSPITAL COURSE The patient was admitted to inpatient unit on January 30, 2017, and discharged on 02/05/2017. The patient was treated with group therapy, individual therapy, and medication management. The patient was responsive to treatment but unfocused. Subsequently, the patient was discharged with a plan to follow up in outpatient program. DISCHARGE MEDICATIONS 1. Desyrel 30 mg daily for mood symptom. 2. Remeron 30 mg daily for depression. 3. Desyrel 100 mg at bedtime for sleep. 4. Depakote 500 mg twice daily for mood stabilization. DISCHARGE DIAGNOSES PSYCHIATRIC: Bipolar mood disorder not otherwise specified, F31.9. SECONDARY: None. MEDICAL: Asthma. History of Klinefelter syndrome. STRESSORS: Psychosocial stressor. FOLLOWUP CARE The patient to follow up in outpatient clinic as per director social welfare. CONDITION ON DISCHARGE The patient pleasant, cooperative. Denied any psychotic symptom or any suicidal ideation. PROGNOSIS Guarded. DIET AND ACTIVITY As tolerated. Dictated by... Dhruv Patel M.D. Unit #: [id number] #: [id number] Patient: JIMBO HERMOSILLO SZCathie/bzg TD: 02/06/2017 08:48 JOB #: [id number] DISCHARGE SUMMARY Page 1 of 1 X Dhruv Patel MD X DISCHARGE SUMMARY
--- NOTE | ~2017-01-30 | PN ---
Unit #: [id number] #: [id number] Patient: JIMBO HERMOSILLO [id number] [facility] [address] [place] [address] [id number] I MR#: [id number] NAME: JIMBO HERMOSILLO ROOM: P110 Age: 21 Sex: M Admission Date: 01/30/2017 : 1995 Attending Physician: Dhruv Patel M.D. Admitting Physician: Dhruv Patel M.D. Primary Care Physician: Primary Care Physician Vika SHAW PROGRESS NOTES DATE 02/03/2017 DISCUSSION Jimbo Hermosillo is a 21-year-old male, seen on 02/03/2017. The patient complaint, cooperative, tolerating medication fairly well, overall having a good day. The patient admitted having problems with his behavior, peer conflict yesterday. REVIEW OF SYSTEMS Complete review of systems unremarkable. MENTAL STATUS EXAMINATION General appearance: Patient tall, dressed casually. Attention span and concentration, fair. Oriented in time, place, and person. Mood and affect, labile. Behavior was argumentative, disruptive, peer conflict. Speech, monotone. Thought process, concrete. The patient denied any thoughts of harming self or others. Recent and remote memory, poor. Insight and judgment, poor. DIAGNOSIS Bipolar mood disorder, NOS. ASSESSMENT/PLAN Advised to continue with the current medication and therapeutic protocol, if needed consider further adjustment of medication. Dictated by... Dhruv Patel M.D. JENNY/emma TD: 02/04/2017 07:12 JOB #: [id number] Unit #: [id number] #: [id number] Patient: JIMBO HERMOSILLO PROGRESS NOTES Page 1 of 1 X Dhruv Patel MD PROGRESS NOTE
--- NOTE | ~2017-01-30 | PN ---
Unit #: [id number] #: [id number] Patient: JIMBO WARD [id number] [facility] [address] [place] [address] [id number] MR#: [id number] NAME: JIMBO WARD ROOM: P110 Age: 21 Sex: M Admission Date: 01/30/2017 : 1995 Attending Physician: Dhruv Patel M.D. Admitting Physician: Dhruv Patel M.D. Primary Care Physician: Primary Care Physician Vika POTTS NOTES DATE OF SERVICE 02/02/2017 DISCUSSION Jimbo Ward is a 21-year-old male seen on 02/02/2017. The patient interviewed, chart reviewed. Obtained information from nursing staff. The patient reported medication is helping him. He was started on Depakote. The patient denied any thoughts of harming self or others, but still guarded, withdrawn, isolative, flat affect. Sad, dysphoric mood. The patient is currently on Depakote and Remeron combination. Complete Review of Systems: Unremarkable. MENTAL STATUS EXAMINATION General Appearance: The patient dressed casually. Attention span, concentration: Fair. Oriented in time, place, and person. Mood and affect labile. Speech rapid in rate. Thought process: Circumstantial. The patient denied any thoughts of harming self or others, but mood lability, passive SI, homicidal ideation, nonspecific. Reason and remote memory: Poor. Insight and judgment: Poor. DIAGNOSIS Bipolar mood disorder not otherwise specified. ASSESSMENT/PLAN Advised to continue with current medication and therapeutic protocol. If needed, consider further adjustment of medication. Dictated by... Ruddy Duong/romulo TD: 02/03/2017 10:19 JOB #: [id number] Unit #: [id number] #: [id number] Patient: JIMBO WARD [facility] PROGRESS NOTES Page 1 of 1 X Dhruv Patel MD PROGRESS NOTE
--- NOTE | ~2017-01-30 | HP ---
Unit #: [id number] #: [id number] Patient: JIMBO HERMOSILLO [id number] [facility] [address] [place] [address] [id number] I MR#: [id number] NAME: JIMBO HERMOSILLO ROOM: P116 Age: 21 Sex: M Admission Date: 01/30/2017 : 1995 Attending Physician: Dhruv Patel M.D. Admitting Physician: Dhruv Patel M.D. Primary Care Physician: Primary Care Physician No HISTORY AND PHYSICAL NOTE The patient is a 21-year-old male admitted to [address] [place] [address] on 01/30/2017 for suicidal ideations. The patient has had numerous visits to this facility for the same. His most recent admission was on 01/02/2017 where full history and physical was completed. That history and physical has been reviewed. No changes need to be made. Dictated by... Eileen Merrill A.P.R.N. EF/bzg TD: 01/31/2017 16:14 JOB #: [id number] HISTORY AND PHYSICAL Page 1 of 1 X EILEEN MERRILL APRN X HISTORY AND PHYSICAL
--- NOTE | ~2017-01-30 | PN ---
Unit #: [id number] #: [id number] Patient: JIMBO WARD [id number] [facility] [address] [place] [address] [id number] MR#: [id number] NAME: JIMBO WARD ROOM: P202 Age: 21 Sex: M Admission Date: 01/30/2017 : 1995 Attending Physician: Dhruv Patel M.D. Admitting Physician: Dhruv Patel M.D. Primary Care Physician: Primary Care Physician Vika POTTS NOTES DATE OF SERVICE 02/04/2017 DISCUSSION Jimbo Ward is a 21-year-old male seen on 02/04/2017. Patient interviewed, chart reviewed. Obtained information from nursing staff. Patient was compliant and cooperative during interview but having a lot of problem in following direction, peer conflict, impulsive behavior. Complete review of systems unremarkable. MENTAL STATUS EXAMINATION General appearance, patient dressed casually. Attention span and concentration fair. Oriented to time, place and person. Mood and affect labile. Speech monotone. Thought process concrete. Patient denied any thoughts of harming self or others. Recent and remote memory poor. Insight and judgement poor. DIAGNOSES Bipolar mood disorder NOS. ASSESSMENT/PLAN Advise to continue with current medication and therapeutic protocol. Patient does not seem to be focused in treatment and disruptive behavior. If patient continues to maintain similar behavior plan to consider discharge and followup in outpatient program. Dictated by... Ruddy Duong/eleazar TD: 02/06/2017 00:35 JOB #: [id number] Unit #: [id number] #: [id number] Patient: JIMBO WARD PROGRESS NOTES Page 1 of 1 X Dhruv Patel MD PROGRESS NOTE
--- NOTE | ~2017-01-30 | PN ---
Unit #: [id number] #: [id number] Patient: JIMBO HERMOSILLO [id number] [facility] [address] [place] [address] [id number] I MR#: [id number] NAME: JIMBO HERMOSILLO ROOM: P110 Age: 21 Sex: M Admission Date: 01/30/2017 : 1995 Attending Physician: Dhruv Patel M.D. Admitting Physician: Dhruv Patel M.D. Primary Care Physician: Primary Care Physician Vika SHAW PROGRESS NOTES DATE OF SERVICE 02/01/2017 DISCUSSION Jimbo is a 21-year-old male seen on 02/01/2017. Patient interviewed, chart reviewed. Obtained information from nursing staff. Patient's vital signs 97.4, 77, 20, 105/65. Patient's behavior was oppositional, cussing, disruptive, impulsive, instigating, rude, threatening, yelling. Complete review of systems unremarkable. MENTAL STATUS EXAMINATION General appearance, patient dressed casually. Attention span and concentration fair. Oriented to time, place and person. Mood and affect labile. Speech monotone. Thought process concrete. Having above mentioned behavior. Passive SI. Recent and remote memory poor. Insight and judgement poor. DIAGNOSES Bipolar mood disorder NOS. ASSESSMENT/PLAN Advise to continue with current medication and therapeutic protocol. If needed consider further adjustment of medication such as adding Depakote or Seroquel for mood stabilization. Dictated by... Ruddy Duong/eleazar TD: 02/03/2017 04:33 JOB #: [id number] Unit #: [id number] #: [id number] Patient: JIMBO HERMOSILLO [facility] PROGRESS NOTES Page 1 of 1 X Dhruv Patel MD PROGRESS NOTE
== END 2017-02-05 09:51 | disposition home or self-care (01) | DRG 885 ==
LOC: EDBD → P1S 21:23 → POF 01-31 13:47 → P1S 01-31 13:49 → P2S 02-04 19:51
DX: F31.4 Bipolar disorder, current episode depressed, severe, without psychotic features (principal); R45.850 Homicidal ideations; F15.10 Other stimulant abuse, uncomplicated; F12.10 Cannabis abuse, uncomplicated; J45.909 Unspecified asthma, uncomplicated; Q98.4 Klinefelter syndrome, unspecified
CPT/HCPCS: J2060; J3486